=== PATIENT | female | born 1990 | race Caucasian/White ===

== ENCOUNTER 2018-09-02 12:35 | Inpatient (IN) | payer OTHER, MEDICAID ==
[2018-09-02 13:10] LABS: ADD UMIC YES; UR ASCORBIC ACID NEGATIVE (NEGATIVE); UR BACTERIA FEW /HPF (NONE SEEN); UR BILIRUBIN (Dip) NEGATIVE (NEGATIVE); UR BLOOD (Dip) NEGATIVE (NEGATIVE); UR CLARITY SLIGHTLY CLOUDY (CLEAR); UR COLOR YELLOW (YELLOW); UR GLUCOSE (Dip) NEGATIVE (NEGATIVE); UR KETONES (Dip) NEGATIVE (NEGATIVE); UR LEUKOCYTE ESTERASE (Dip) TRACE Leu/ul (NEGATIVE); UR NITRITE (Dip) NEGATIVE (NEGATIVE); UR RBC 1 /HPF (0-5); UR SPECIFIC GRAVITY (Dip) 1.012 (1.003-1.030); UR SQUAMOUS EPITHELIAL CELL FEW /HPF (FEW); UR TOTAL PROTEIN (Dip) 2+ mg/dl (NEGATIVE); UR UROBILINOGEN (Dip) NEGATIVE (NEGATIVE); UR WBC 17 /HPF (0-5)
[2018-09-02 13:23] LABS: ADD MAN DIFF? NO
[2018-09-02 13:26] LABS: WHITE BLOOD COUNT 10.5 10^3/ul (4.8-10.8)
[2018-09-02 13:26] LABS: BASOPHIL # 0.1 10^3/ul (0.0-0.1); BASOPHILS % 0.5 % (0.0-2.0); EOSINOPHILS # 0.1 10^3/ul (0.0-0.5); EOSINOPHILS % 0.5 % (0.0-7.0); HEMATOCRIT 35.2 % (37.0-47.0); HEMOGLOBIN 11.1 g/dl (12.0-16.0); LYMPHOCYTES # 1.8 10^3/ul (0.8-2.9); LYMPHOCYTES % 17.1 % (15.0-51.0); MEAN CORPUSCULAR HEMOGLOBIN 24.8 pg (29.0-33.0); MEAN CORPUSCULAR HGB CONC 31.5 g/dl (32.0-37.0); MEAN CORPUSCULAR VOLUME 78.7 fl (82.0-101.0); MEAN PLATELET VOLUME 10.2 fl (7.4-10.4); MONOCYTE # 0.3 10^3/ul (0.3-0.9); MONOCYTES % 3.3 % (0.0-11.0); NEUTROPHIL # 8.1 10^3/ul (1.6-7.5); NEUTROPHILS % 77.7 % (39.0-77.0); NUCLEATED RED BLOOD CELLS% 0.2 /100WBC (0.0-0.0); PLATELET COUNT 314 10^3/UL (140-415); RED BLOOD COUNT 4.47 10^6/ul (4.20-5.40); RED CELL DISTRIBUTION WIDTH 16.5 % (11.5-14.5)
[2018-09-02 13:44] LABS: ALANINE AMINOTRANSFERASE 20 IU/L (13-69); ALBUMIN 3.8 g/dl (3.3-4.9); ALBUMIN/GLOBULIN RATIO 0.92; ALKALINE PHOSPHATASE 141 IU/L (42-121); ANION GAP 11 (5-13); ASPARTATE AMINO TRANSFERASE 25 IU/L (15-46); BLOOD UREA NITROGEN 14 mg/dl (7-20); CALCIUM 9.1 mg/dl (8.4-10.2); CARBON DIOXIDE 25 mmol/L (21-31); CHLORIDE 102 mmol/L (97-110); CREATININE 0.64 mg/dl (0.44-1.00); Estimated GFR > 60 mL/min (>60); GLUCOSE 79 mg/dl (70-220); POTASSIUM 4.3 mmol/L (3.5-5.1); SODIUM 138 mmol/L (135-144); TOTAL PROTEIN 7.9 g/dl (6.1-8.1); URIC ACID 6.4 mg/dl (3.1-7.9)
[2018-09-02 13:57] LABS: INR 0.93; PROTIME 12.6 Sec (11.9-14.9)
[2018-09-02 13:58] LABS: PARTIAL THROMBOPLASTIN TIME 27.3 Sec (23.0-35.0)
[2018-09-02] MEDS: BETAMET NA PHOS/AC(6 MG/ML) 2 ML INJ SYG IM (17:04)
[2018-09-02] MEDS: LABETALOL 200 MG TAB PO (23:10)
[2018-09-03] MEDS: LACTATED RINGER'S 1,000 ML IV ×2 (09:20→18:42)
[2018-09-03] MEDS: PRENATAL VITAMIN PO (09:29)
[2018-09-03] MEDS: LABETALOL 100 MG TAB PO ×2 (09:30→21:21)
[2018-09-03] MEDS: ASPIRIN (EC) 81 MG TAB PO (09:59)
[2018-09-03 16:08] LABS: COLLECTION PERIOD 24 hrs
[2018-09-03] MEDS: BETAMET NA PHOS/AC(6 MG/ML) 2 ML INJ SYG IM (16:15)
[2018-09-03 16:51] LABS: COLLECTION PERIOD 24 hrs; CREATININE CLEARANCE 120.6 mls/min (84.0-162.0); CREATININE,URINE RANDOM 27.78 mg/dl (20-320); SCRET 0.64 mg/dl (0.44-1.00); VOLUME 4000 ml/24hrs
[2018-09-03 17:13] LABS: VOLUME 4000 mls
[2018-09-04] MEDS: LACTATED RINGER'S 1,000 ML IV ×2 (04:44→15:43)
[2018-09-04] MEDS: PRENATAL VITAMIN PO (08:53)
[2018-09-04] MEDS: LABETALOL 100 MG TAB PO ×2 (08:55→21:11)
[2018-09-04 22:56] LABS: WHITE BLOOD COUNT 14.1 10^3/ul (4.8-10.8)
[2018-09-04 22:56] LABS: ADD MAN DIFF? NO; BASOPHILS % 0.2 % (0.0-2.0); HEMATOCRIT 34.2 % (37.0-47.0); HEMOGLOBIN 10.5 g/dl (12.0-16.0); LYMPHOCYTES # 2.5 10^3/ul (0.8-2.9); LYMPHOCYTES % 17.9 % (15.0-51.0); MEAN CORPUSCULAR HEMOGLOBIN 24.6 pg (29.0-33.0); MEAN CORPUSCULAR HGB CONC 30.7 g/dl (32.0-37.0); MEAN CORPUSCULAR VOLUME 80.3 fl (82.0-101.0); MEAN PLATELET VOLUME 10.3 fl (7.4-10.4); MONOCYTE # 0.8 10^3/ul (0.3-0.9); MONOCYTES % 5.4 % (0.0-11.0); NEUTROPHIL # 10.6 10^3/ul (1.6-7.5); NEUTROPHILS % 75.2 % (39.0-77.0); NUCLEATED RED BLOOD CELLS # 0.1 10^3/ul (0.0-0.0); NUCLEATED RED BLOOD CELLS% 0.4 /100WBC (0.0-0.0); PLATELET COUNT 392 10^3/UL (140-415); RED BLOOD COUNT 4.26 10^6/ul (4.20-5.40); RED CELL DISTRIBUTION WIDTH 17.4 % (11.5-14.5)
[2018-09-04 23:16] LABS: INR 0.96; PROTIME 12.9 Sec (11.9-14.9)
[2018-09-04 23:17] LABS: PARTIAL THROMBOPLASTIN TIME 24.9 Sec (23.0-35.0)
[2018-09-04 23:25] LABS: ALANINE AMINOTRANSFERASE 25 IU/L (13-69); ALBUMIN 3.5 g/dl (3.3-4.9); ALBUMIN/GLOBULIN RATIO 0.89; ALKALINE PHOSPHATASE 110 IU/L (42-121); ANION GAP 14 (5-13); ASPARTATE AMINO TRANSFERASE 24 IU/L (15-46); BLOOD UREA NITROGEN 13 mg/dl (7-20); CARBON DIOXIDE 24 mmol/L (21-31); CHLORIDE 102 mmol/L (97-110); CREATININE 0.55 mg/dl (0.44-1.00); Estimated GFR > 60 mL/min (>60); GLUCOSE 94 mg/dl (70-220); POTASSIUM 4.2 mmol/L (3.5-5.1); SODIUM 140 mmol/L (135-144); TOTAL PROTEIN 7.4 g/dl (6.1-8.1); URIC ACID 6.4 mg/dl (3.1-7.9)
[2018-09-04 23:57] LABS: ADD UMIC YES; UR ASCORBIC ACID NEGATIVE (NEGATIVE); UR BACTERIA FEW /HPF (NONE SEEN); UR BILIRUBIN (Dip) NEGATIVE (NEGATIVE); UR BLOOD (Dip) NEGATIVE (NEGATIVE); UR CLARITY CLEAR (CLEAR); UR COLOR STRAW (YELLOW); UR GLUCOSE (Dip) NEGATIVE (NEGATIVE); UR KETONES (Dip) NEGATIVE (NEGATIVE); UR LEUKOCYTE ESTERASE (Dip) TRACE Leu/ul (NEGATIVE); UR NITRITE (Dip) NEGATIVE (NEGATIVE); UR RBC 0 /HPF (0-5); UR SPECIFIC GRAVITY (Dip) 1.006 (1.003-1.030); UR SQUAMOUS EPITHELIAL CELL FEW /HPF (FEW); UR TOTAL PROTEIN (Dip) 1+ mg/dl (NEGATIVE); UR UROBILINOGEN (Dip) NEGATIVE (NEGATIVE); UR WBC 1 /HPF (0-5)
[2018-09-05] MEDS: LACTATED RINGER'S 1,000 ML IV ×6 (01:27→21:30)
[2018-09-05] MEDS ORDERED: METHYLERGONOVINE 0.2 MG INJ (07:00)
[2018-09-05] MEDS: PRENATAL VITAMIN PO (09:18)
[2018-09-05] MEDS: LABETALOL 100 MG TAB PO ×2 (09:18→21:36)
[2018-09-05] MEDS: ASPIRIN (EC) 81 MG TAB PO (09:18)
[2018-09-05] MEDS ORDERED: FAMOTIDINE 20 MG INJ IV (11:30)
[2018-09-05] MEDS ORDERED: CITRIC ACID/NA CITRATE 30 ML CUP PO (11:30)
[2018-09-05] MEDS ORDERED: MISOPROSTOL 200 MCG TAB PR ×2 (11:30→15:00)
[2018-09-05] MEDS ORDERED: OXYTOCIN 30 UNITS/LR 500 ML IV ×4 (11:30→15:00)
[2018-09-05] MEDS ORDERED: METHYLERGONOVINE 0.2 MG INJ IM ×2 (11:30→15:00)
[2018-09-05] MEDS ORDERED: CARBOPROST 250 MCG INJ IM ×2 (11:30→15:00)
[2018-09-05] MEDS: CITRIC ACID/NA CITRATE 30 ML CUP PO (11:50)
[2018-09-05] MEDS: METOCLOPRAMIDE 10 MG INJ IV ×2 (11:50→21:43)
[2018-09-05] MEDS: FAMOTIDINE 20 MG INJ IV (11:51)
[2018-09-05] MEDS ORDERED: morphine SULFATE/PF (10 MG/10 ML) INJ (12:00)
[2018-09-05] MEDS: CEFAZOLIN 2 GM/50 ML (PMX) 50 ML IVPB ×3 (12:19→23:42)
[2018-09-05] MEDS ORDERED: MEPERIDINE 25 MG INJ IV (12:30)
[2018-09-05] MEDS ORDERED: FENTAnyl 50 MCG/ML VIAL IV ×3 (12:30)
[2018-09-05] MEDS ORDERED: HYDROmorphONE 1 MG/5 ML IV SYRINGE IV ×3 (12:30)
[2018-09-05] MEDS ORDERED: KETOROLAC 30 MG INJ IV (12:30)
[2018-09-05] MEDS ORDERED: PROCHLORPERAZINE 10 MG INJ IV (12:30)
[2018-09-05] MEDS ORDERED: ONDANSETRON 4 MG INJ IV ×2 (12:30→14:00)
[2018-09-05] MEDS ORDERED: DIPHENHYDRAMINE 50 MG INJ IV ×2 (12:30→14:00)
[2018-09-05] MEDS ORDERED: ONDANSETRON 4 MG INJ (12:39)
[2018-09-05] MEDS ORDERED: ZOLPIDEM 5 MG TAB PO (14:00)
[2018-09-05] MEDS ORDERED: NALOXONE (0.4 MG/ML) INJ IV (14:00)
[2018-09-05] MEDS ORDERED: HYDROmorphONE 0.5 MG/0.5 ML SYG IV ×2 (14:00)
[2018-09-05] MEDS: MAGNESIUM SULFATE 4 GM/100 ML 100 ML IV (14:11)
[2018-09-05] MEDS ORDERED: MAGNESIUM SULFATE 20 GM/500 ML 500 ML IV (14:35)
[2018-09-05] MEDS: MAGNESIUM SULFATE 20 GM/500 ML 500 ML IV (14:45)
[2018-09-05] MEDS: AZITHROMYCIN 500MG/NS (PMX) 250 ML IVPB (14:48)
[2018-09-05] MEDS: KETOROLAC 60 MG INJ IM (14:52)
[2018-09-05] MEDS ORDERED: NA PHOSPHATE/BIPHOS 133 ML ENEMA PR (15:00)
[2018-09-05] MEDS: CLINDAMYCIN 300 MG CAP PO ×2 (18:29→23:48)
[2018-09-05 21:12] LABS: MAGNESIUM 5.5 mg/dl (1.7-2.5)
[2018-09-05] MEDS: IBUPROFEN 800 MG TAB PO ×2 (21:30→22:00)
[2018-09-05] MEDS: SENNA/DOCUSATE NA (8.6MG/50MG) TAB PO (21:37)
[2018-09-06] MEDS: MAGNESIUM SULFATE 20 GM/500 ML 500 ML IV ×3 (02:32→20:35)
[2018-09-06] MEDS: KETOROLAC 30 MG INJ IV ×2 (05:30→12:28)
[2018-09-06] MEDS: LACTATED RINGER'S 1,000 ML IV ×3 (05:30→21:30)
[2018-09-06] MEDS: CLINDAMYCIN 300 MG CAP PO ×3 (05:32→18:41)
[2018-09-06] MEDS: IBUPROFEN 800 MG TAB PO ×3 (06:00→21:43)
[2018-09-06] MEDS: CEFAZOLIN 2 GM/50 ML (PMX) 50 ML IVPB ×2 (07:16→12:21)
[2018-09-06 07:57] LABS: ADD MAN DIFF? NO
[2018-09-06 08:05] LABS: BASOPHILS % 0.2 % (0.0-2.0); EOSINOPHILS % 0.1 % (0.0-7.0); HEMATOCRIT 31.4 % (37.0-47.0); HEMOGLOBIN 9.8 g/dl (12.0-16.0); LYMPHOCYTES # 1.7 10^3/ul (0.8-2.9); LYMPHOCYTES % 13.4 % (15.0-51.0); MEAN CORPUSCULAR HEMOGLOBIN 24.6 pg (29.0-33.0); MEAN CORPUSCULAR HGB CONC 31.2 g/dl (32.0-37.0); MEAN CORPUSCULAR VOLUME 78.9 fl (82.0-101.0); MONOCYTE # 0.6 10^3/ul (0.3-0.9); MONOCYTES % 4.7 % (0.0-11.0); NUCLEATED RED BLOOD CELLS% 0.2 /100WBC (0.0-0.0); PLATELET COUNT 316 10^3/UL (140-415); RED BLOOD COUNT 3.98 10^6/ul (4.20-5.40)
[2018-09-06 08:05] LABS: WHITE BLOOD COUNT 12.3 10^3/ul (4.8-10.8)
[2018-09-06 08:34] LABS: MAGNESIUM 6.7 mg/dl (1.7-2.5)
[2018-09-06] MEDS: SENNA/DOCUSATE NA (8.6MG/50MG) TAB PO ×2 (08:38→20:46)
[2018-09-06] MEDS: LABETALOL 100 MG TAB PO ×2 (08:39→20:46)
[2018-09-06] MEDS: BISACODYL 10 MG SUPP PR (12:22)
[2018-09-06] MEDS: OXYCODONE/ACETAMINOPHEN (5/325) TAB PO (20:47)
[2018-09-07] MEDS: CLINDAMYCIN 300 MG CAP PO ×4 (00:25→18:02)
[2018-09-07] MEDS: IBUPROFEN 800 MG TAB PO ×3 (05:37→21:53)
[2018-09-07] MEDS: OXYCODONE/ACETAMINOPHEN (5/325) TAB PO (07:41)
[2018-09-07 08:05] LABS: ADD MAN DIFF? NO
[2018-09-07 08:08] LABS: BASOPHILS % 0.3 % (0.0-2.0); EOSINOPHILS # 0.1 10^3/ul (0.0-0.5); EOSINOPHILS % 0.3 % (0.0-7.0); HEMATOCRIT 33.7 % (37.0-47.0); HEMOGLOBIN 10.1 g/dl (12.0-16.0); LYMPHOCYTES # 2.3 10^3/ul (0.8-2.9); LYMPHOCYTES % 15.2 % (15.0-51.0); MEAN CORPUSCULAR HEMOGLOBIN 24.3 pg (29.0-33.0); MEAN PLATELET VOLUME 9.8 fl (7.4-10.4); MONOCYTE # 0.6 10^3/ul (0.3-0.9); MONOCYTES % 3.9 % (0.0-11.0); NEUTROPHIL # 11.9 10^3/ul (1.6-7.5); NEUTROPHILS % 79.7 % (39.0-77.0); PLATELET COUNT 339 10^3/UL (140-415); RED BLOOD COUNT 4.16 10^6/ul (4.20-5.40)
[2018-09-07 08:08] LABS: WHITE BLOOD COUNT 14.9 10^3/ul (4.8-10.8)
[2018-09-07] MEDS: LABETALOL 100 MG TAB PO ×2 (08:28→20:40)
[2018-09-07] MEDS: SENNA/DOCUSATE NA (8.6MG/50MG) TAB PO ×2 (08:28→20:40)
[2018-09-07] MEDS: CIPROFLOXACIN 500 MG TAB PO (18:02)
[2018-09-07] MEDS: LANOLIN HPA 1 PKT TOP (20:40)
[2018-09-07] MEDS: HYDROCODONE/APAP (5/325) TAB PO (22:32)
[2018-09-08] MEDS: CLINDAMYCIN 300 MG CAP PO ×3 (01:08→12:10)
[2018-09-08] MEDS: IBUPROFEN 800 MG TAB PO ×2 (06:08→14:20)
[2018-09-08] MEDS: CIPROFLOXACIN 500 MG TAB PO (06:10)
[2018-09-08] MEDS: HYDROCODONE/APAP (5/325) TAB PO (07:02)
[2018-09-08] MEDS: LABETALOL 100 MG TAB PO (08:35)
[2018-09-08] MEDS: DIPHTH/TET/ACEL PERTUSS (ADULT) 0.5 ML VIAL IM* (08:36)
[2018-09-08 08:42] LABS: ADD MAN DIFF? NO
[2018-09-08 08:51] LABS: WHITE BLOOD COUNT 13.3 10^3/ul (4.8-10.8)
[2018-09-08 08:51] LABS: BASOPHIL # 0.1 10^3/ul (0.0-0.1); BASOPHILS % 0.5 % (0.0-2.0); EOSINOPHILS # 0.2 10^3/ul (0.0-0.5); EOSINOPHILS % 1.6 % (0.0-7.0); HEMOGLOBIN 9.4 g/dl (12.0-16.0); LYMPHOCYTES # 2.6 10^3/ul (0.8-2.9); LYMPHOCYTES % 19.2 % (15.0-51.0); MEAN CORPUSCULAR HEMOGLOBIN 24.8 pg (29.0-33.0); MEAN CORPUSCULAR HGB CONC 30.3 g/dl (32.0-37.0); MEAN CORPUSCULAR VOLUME 81.8 fl (82.0-101.0); MONOCYTE # 0.6 10^3/ul (0.3-0.9); MONOCYTES % 4.3 % (0.0-11.0); NEUTROPHIL # 9.8 10^3/ul (1.6-7.5); NEUTROPHILS % 73.3 % (39.0-77.0); PLATELET COUNT 330 10^3/UL (140-415); RED BLOOD COUNT 3.79 10^6/ul (4.20-5.40); RED CELL DISTRIBUTION WIDTH 17.8 % (11.5-14.5)
[2018-09-08 09:45] LABS: HEPATITIS B SURFACE ANTIGEN NEGATIVE (NEGATIVE)
[2018-09-08] MEDS: SENNA/DOCUSATE NA (8.6MG/50MG) TAB PO (11:13)
[2018-09-08] MEDS: MEASLES,MUMPS,RUBELLA VACCINE INJ SC* (11:14)
[2018-09-08] MEDS: ACETAMINOPHEN 325 MG TAB PO (14:30)
[2018-09-08 21:58] LABS: RAPID PLASMA REAGIN NONREACTIVE (NR)
== END 2018-09-08 17:28 | disposition home or self-care (01) | DRG 787 ==
LOC: OBT 12:35 → L-D 09-05 11:25 → PP1 09-05 15:56 → OBT 14:40 → PP1 14:35
PROC: 10D00Z1 Extraction of Products of Conception, Low, Open Approach (ICD-10-PCS; principal; 2018-09-02)
DX: O13.4 Gestational [pregnancy-induced] hypertension without significant proteinuria, complicating childbirth (principal); O41.03X0 Oligohydramnios, third trimester, not applicable or unspecified; O76 Abnormality in fetal heart rate and rhythm complicating labor and delivery; O36.5930 Maternal care for other known or suspected poor fetal growth, third trimester, not applicable or unspecified; O99.113 Other diseases of the blood and blood-forming organs and certain disorders involving the immune mechanism complicating pregnancy, third trimester; D72.829 Elevated white blood cell count, unspecified; Z3A.33 33 weeks gestation of pregnancy; Z37.0 Single live birth
CPT/HCPCS: 76815; 76818; 76820; 80053; 81001; 82575; 83735; 84156; 84560; 85025; 85384; 85610; 85730; 86592; 86850; 86900; 86901; 87340; 88307; 99464